=== PATIENT | male | born 1990 | race Hispanic/Latino ===

== ENCOUNTER 2023-12-26 09:10 | Emergency (ER) | payer OTHER ==
[~2023-12-26] VITALS: Ht 172.7 cm; Wt 99.8 kg
[2023-12-26 11:13] LABS: BILIRUBIN,URINE NEGATIVE (NEGATIVE); CLARITY,URINE CLEAR (CLEAR); COLOR,URINE YELLOW (YELLOW); GLUCOSE, URINE NEGATIVE (NEGATIVE); KETONES,URINE NEGATIVE (NEGATIVE); LEUKOCYTE ESTERASE ,URINE NEGATIVE (NEGATIVE); NITRITE,URINE NEGATIVE (NEGATIVE); PH,URINE 6 (5 - 7); PROTEIN,URINE DIPSTICK NEGATIVE (NEGATIVE); URINE UROBILINOGEN 0.2 mg/dL (0.2 - 1)
[2023-12-26 11:48] LABS: BACTERIA,URINE FEW /HPF
[2023-12-26 13:20] VITALS: PULSE 50; RESP 15; TEMP 97; O2SAT 99
== END 2023-12-26 13:20 | disposition home or self-care (01) ==
LOC: ER 09:40
DX: N50.811 Right testicular pain (principal); N43.3 Hydrocele, unspecified
CPT/HCPCS: 76870; 81001; 93976; 99283

== ENCOUNTER 2024-10-16 08:09 | Emergency (ER) | payer SELFPAY ==
[~2024-10-16] VITALS: Ht 172.7 cm; Wt 99.8 kg
[2024-10-16 08:35] VITALS: TEMP 98.7
[2024-10-16] MEDS ORDERED: METHOCARBAMOL750 MG PO (09:15)
[2024-10-16 09:33] VITALS: PULSE 57; RESP 18
[2024-10-16 09:34] VITALS: BP 142/80; PULSE 57; RESP 18; TEMP 97.8; O2SAT 98
== END 2024-10-16 09:38 | disposition home or self-care (01) ==
LOC: ER 08:20
DX: M79.651 Pain in right thigh (principal); M79.18 Myalgia, other site; Y93.B9 Activity, other involving muscle strengthening exercises; E78.5 Hyperlipidemia, unspecified
CPT/HCPCS: 99282